=== PATIENT | male | born 1950 | race Caucasian/White ===

== ENCOUNTER 2017-12-24 09:00 | Outpatient (RCR) | payer MEDICARE ==
[~2017-12-24 09:00] MED LIST: ALIS1TAB PO; ALL300 PO; AMLO-122 PO; AMLO-99 PO; ASPI81TA94 PO; BUDE10.2 IH; CLIN300C91 PO; FLU60SYR30 IM ONLY; FLUT1BLS3 INH; GEMF600T89 PO; INDO25OR3 PO; SILD20TA PO; TIO18R
== END 2017-12-25 ==
LOC: RESP 09:00
PROVIDERS: ATTEND Nurse Practitioner Primary Care
DX: J44.9 Chronic obstructive pulmonary disease, unspecified (principal)
CPT/HCPCS: G0424 ×10

== ENCOUNTER 2018-01-26 09:00 | Outpatient (RCR) | payer MEDICARE | END 2018-02-04 | LOC: RESP 09:00 | PROVIDERS: ATTEND Nurse Practitioner Primary Care | DX: J44.9 Chronic obstructive pulmonary disease, unspecified (principal) | CPT/HCPCS: G0424 ×9 ==

== ENCOUNTER → 2018-03-03 | Outpatient (CLI) | payer MEDICARE | LOC: LAB 14:09 | PROVIDERS: ATTEND Internal Medicine Cardiovascular Disease | DX: Z01.812 Encounter for preprocedural laboratory examination (principal); I10 Essential (primary) hypertension | CPT/HCPCS: 36415; 82040; 82247; 82310; 82374; 82435; 82565; 82947; 83735; 84075; 84132; 84155; 84295; 84450; 84460; 84520; 85027 ==

== ENCOUNTER → 2018-03-05 | Outpatient (CLI) | payer MEDICARE ==
[2018-03-05 13:17] LABS: PLATELET COUNT, AUTOMATED 256 K/uL (150-450)
[2018-03-05 13:20] LABS: INR 1.03
== END ==
LOC: LAB 12:51
PROVIDERS: ATTEND Internal Medicine Cardiovascular Disease
DX: Z01.810 Encounter for preprocedural cardiovascular examination (principal); I50.9 Heart failure, unspecified
CPT/HCPCS: 36415; 82310; 82374; 82435; 82565; 82947; 84132; 84295; 84520; 85025; 85610

== ENCOUNTER → 2018-03-31 | Outpatient (CLI) | payer MEDICARE | LOC: LAB 13:13 | PROVIDERS: ATTEND Internal Medicine Cardiovascular Disease | DX: T50.1X5A Adverse effect of loop [high-ceiling] diuretics, initial encounter (principal); I27.0 Primary pulmonary hypertension | CPT/HCPCS: 36415; 82310; 82374; 82435; 82565; 82947; 83735; 84132; 84295; 84520 ==

== ENCOUNTER → 2018-04-28 | Outpatient (CLI) | payer MEDICARE ==
[~2018-04-28] MED LIST changes: +FURO-45 PO; +HYDR25TA66 PO
== END ==
LOC: LAB 11:32
PROVIDERS: ATTEND Internal Medicine Cardiovascular Disease
DX: Z79.899 Other long term (current) drug therapy (principal)
CPT/HCPCS: 36415; 82310; 82374; 82435; 82565; 82947; 83735; 84132; 84295; 84520